=== PATIENT | female | born 2000 | race Caucasian/White ===

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

== ENCOUNTER 2022-01-19 15:22 | Emergency (ER) | payer OTHER, SELFPAY ==
[2022-01-19 15:26] VITALS: BP 125/75; PULSE 94; RESP 12; TEMP 36.7; O2SAT 100
--- NOTE | 2022-01-19 15:30 | ED.EXTPRO ---
HPI - Extremity Problem General Chief complaint: Extremity Problem,Nontraumatic Stated complaint: ingrown toenail Time Seen by Provider: 01/19/22 15:31 Source: patient, RN notes reviewed and old records reviewed Mode of arrival: ambulatory Limitations: no limitations History of Present Illness HPI Narrative: 21-year-old female [facility] complaints of painful left ingrown toenail. Reports hurts to walk and put full weight on left foot. Left big toe has been painful for a few weeks. Has had ingrown toenails in the past. Denies drainage from left big toe. Denies warmth left big toe. Denies fever muscle aches or chills. Onset (ago): week(s) (2-3) Related Data Home Medications Medication Instructions Recorded Confirmed multivitamin [Multi-Vitamins] 1 tablet PO DAILY 08/05/21 08/08/21 norgestimate-ethinyl estradiol 1 tablet PO DAILY 08/05/21 08/08/21 [Sprintec (28)] Allergies Allergy/AdvReac Type Severity Reaction Status Date / Time avocado Allergy Swelling Verified 08/08/21 11:09 of Lip/Tongue/Throat Review of Systems Review of Systems: CONSTITUTIONAL: Denies malaise, chills, sweats, fatigue or fever. EYES: Denies visual changes, redness, or discharge. ENT: Denies rhinorrhea, congestion, sinus pain, otalgia or sore throat. CARDIOVASCULAR: Denies chest pain, palpitations, or edema. RESPIRATORY: Denies cough or dyspnea. GASTROINTESTINAL: Denies abdominal pain, nausea, vomiting, diarrhea, bloody, or mucous stools. GENITOURINARY: Denies dysuria or hematuria. SKIN: Redness at left great toe. MUSCULOSKELETAL: Denies back pain, joint pain, or myalgia. NEUROLOGIC: Denies numbness, weakness, or headache. PSYCHIATRIC: Denies anxiety or depression. All systems reviewed & are unremarkable except as noted in HPI and below PMFSH Past Medical History Medical History No significant past medical history Surgical History Surgical History No significant past surgical history Social History Social History Smoking status: Never smoker Alcohol intake: never Substance use: never Comments At time of signature, agree with nursing past medical, surgical, social and family history. There is no relevant family history pertinent to the presenting complaint Exam Narrative: GENERAL: Well-appearing, well-nourished, female and in no acute distress. Pleasant, cooperative and casually dressed. HEAD: Normocephalic, atraumatic. EYES: conjunctivae clear, and EOMI. No nystagmus. ENT: Nares patent and clear, no rhinorrhea or epistaxis. Mucous membranes moist. Oropharynx without erythema or lesions. Tonsils not enlarged and without exudate. NECK: Supple. Full range of motion no lymphadenopathy. No jugular venous distension, thyromegaly, or carotid bruits. CHEST: No respiratory distress. Clear to auscultation anterior and posterior. No bony deformities, no asymmetry. Speaks in full sentences. HEART: Regular rate and rhythm. No murmur heard. Normal peripheral pulses. ABDOMEN: Soft, nontender, nondistended, normal active bowel sounds, no palpable masses. EXTREMITIES: Normal range of motion. No edema. Normal strength and sensation. SKIN: [place] warm, dry, no rash. Left great nail lateral fold and proximal nail fold erythematous mildly swollen. Tender with palpation, no excessive warmth. NEURO: Alert and oriented x3. No focal deficits. Cranial nerves II through XII grossly intact PSYCH: Normal mood and affect Course Course Emergency Course: Patient is aware of diagnosis, understands and agrees to treatment plan. Anticipatory guidance given. Patient agrees to follow-up as directed and is aware of reasons to seek care at the emergency department. Portions of this record may have been created with voice recognition software Level of Care: [facility]
== END 2022-01-19 15:46 | disposition left against medical advice (07) ==
PROVIDERS: Emergency Provider Nurse Practitioner Family
DX: L60.0 Ingrowing nail (principal)
CPT/HCPCS: 99213; 99214; G0463

== ENCOUNTER 2023-10-30 16:40 | Emergency (ER) | payer OTHER, SELFPAY ==
--- NOTE | ~2023-10-30 | XR_ITS ---
EXAMINATION: XR chest 2V DATE: 10/30/2023 20:19 INDICATION: Cough and shortness of breath. TECHNIQUE: Frontal and lateral views of the chest were obtained. COMPARISON: None. FINDINGS: There is no pneumonia, pleural effusion, or pneumothorax. The heart size is normal. Pectus excavatum is noted. IMPRESSION: 1. No acute cardiopulmonary disease. Reviewed, dictated and finalized at location E. ATAL ICU COORDINATOR
[2023-10-30 17:10] VITALS: BP 129/84; PULSE 117; RESP 18; TEMP 36.9; O2SAT 98
[2023-10-30 21:27] LABS: Influenza A QL RT-PCR Negative (Negative); Influenza B QL RT-PCR Negative (Negative); RSV RNA, RT-PCR Negative (Negative); SARS-CoV-2 RNA PCR Negative (Negative)
[2023-10-30] MEDS: IPRATROPIUM BR 0.02% INH SOLN 0.5 MG/2.5 ML VIAL 1.5 MG INHALATION (21:50)
[2023-10-30] MEDS: LEVALBUTEROL NEB 1.25 MG/3 ML 2.5 MG INHALATION (21:50)
--- NOTE | 2023-10-30 22:18 | ED.SOB ---
HPI - SOB/Dyspnea General Chief Complaint: Shortness of Breath/Dyspnea Stated Complaint: uri Time Seen by Provider: 10/30/23 20:11 Source: patient Mode of arrival: ambulatory Limitations: no limitations History of Present Illness HPI Narrative: Patient is a 23 y/o previously healthy female who presents the ED with report of persistent cough. Patient reports she has had an ongoing persistent cough for the last 4 weeks. She was seen at an urgent care a couple of weeks ago, prescribed an antibiotic, albuterol inhaler, Tessalon Perles. She has been using these as prescribed, but complains of persistent cough, intermittent shortness of breath. Denies ESPANA. She notes rib pain with coughing, denies chest pain at rest. Denies fevers. Denies nausea, vomiting, dizziness, LH. Related Data Home Medications Medication Instructions Recorded Confirmed multivitamin 1 tablet PO DAILY 08/05/21 08/08/21 norgestimate 0.25 mg-ethinyl 1 tablet PO DAILY 08/05/21 08/08/21 estradiol 35 mcg tablet (Sprintec (28)) Allergies Allergy/AdvReac Type Severity Reaction Status Date / Time avocado Allergy Swelling Verified 08/08/21 11:09 of Lip/Tongue/Throat Review of Systems Review of Systems: CONSTITUTIONAL: Denies fever, chills, or sweats. CARDIOVASCULAR: See HPI. RESPIRATORY: See HPI. GASTROINTESTINAL: Denies abdominal pain, nausea, vomiting. All systems reviewed & are unremarkable except as noted in HPI and below PMFSH Past Medical History Medical History No significant past medical history Surgical History Surgical History No significant past surgical history Social History Social History Smoking status: Never smoker Alcohol intake: never Substance use: never Living arrangements: with family Exam Narrative: GENERAL: Well appearing, thin, non-toxic, in no acute distress. HEAD: Normocephalic, atraumatic. NECK: Supple. No adenopathy, no masses. RESPIRATORY: Airway patent, respirations nonlabored. Coarse lung sounds bilaterally, crackles in bases. Occasional expiratory wheezing. No distress. No stridor. CARDIOVASCULAR: Regular rate and rhythm without murmurs, rubs, or gallops. Radial pulses 2+ and equal bilaterally. ABDOMINAL: Soft, nontender, nondistended, no hepatosplenomegaly. Normoactive BS. MUSCULOSKELETAL: Moves all extremities. Strength/ROM intact without gross deformities. No edema. No calf tenderness. SKIN: Warm, dry, normal color. No rashes. NEURO: A&O X3. Speech clear. Cranial nerves II-XII grossly intact. Steady gait. No ataxic movements. PSYCHIATRIC: Appropriate mood and affect. Normal interaction. Course Vital Signs Vital signs: Vital Signs Temperature 98.4 F 10/30/23 17:10 Pulse Rate 117 H 10/30/23 17:10 Respiratory Rate 18 10/30/23 17:10 Blood Pressure 129/84 10/30/23 17:10 Pulse Oximetry 98 10/30/23 17:10 Oxygen Delivery Room Air 10/30/23 17:10 Temperature 98.4 F 10/30/23 17:10 Pulse Rate 80 10/30/23 22:34 Respiratory Rate 18 10/30/23 22:34 Blood Pressure 141/80 H 10/30/23 22:34 Pulse Oximetry 100 10/30/23 22:34 Oxygen Delivery Room Air 10/30/23 20:05 MDM - SOB/Dyspnea MDM Narrative Medical decision making narrative: Patient presented to ED with URI symptoms, 4 week history of cough, intremittent SOB. Patient tachycardic upon arrival, did improve by the time of my evaluation. Crackles and wheezing heard throughout lung hair. Will order breathing Tx And steroids. Patient without history of previous asthma. Chest x-ray clear. Viral swabs negative. Patient low risk Wells score. No pleuritic pain, evidence of DVT on exam, dyspnea on exertion, palpitations. Low suspicion for acute VTE this time. Patient feeling much better after
[2023-10-30] MEDS: methylPREDNISolone SOD SUCC 125 MG VIAL IM (22:24)
[2023-10-30 22:34] VITALS: BP 141/80; PULSE 80; RESP 18; O2SAT 100
== END 2023-10-31 00:04 | disposition home or self-care (01) ==
PROVIDERS: Emergency Provider Physician Assistant
DX: J40 Bronchitis, not specified as acute or chronic (principal); Z20.822 Contact with and (suspected) exposure to COVID-19
CPT/HCPCS: 71046; 87637; 96372; 99283; J2930